=== PATIENT | female | born 1990 | race Caucasian/White ===

== ENCOUNTER 2022-04-06 10:13 | Outpatient (CLI) | payer OTHER | END 2022-04-06 10:51 | disposition home or self-care (01) | LOC: NST 10:13 | PROVIDERS: ATTEND Obstetrics & Gynecology | DX: Z34.83 Encounter for supervision of other normal pregnancy, third trimester (principal) ==

== ENCOUNTER 2022-04-10 09:47 | Outpatient (CLI) | payer OTHER | END 2022-04-10 10:27 | disposition home or self-care (01) | LOC: EDBD 09:47 → NST 09:47 | PROVIDERS: ATTEND Obstetrics & Gynecology | DX: Z34.83 Encounter for supervision of other normal pregnancy, third trimester (principal) ==

== ENCOUNTER 2022-04-15 05:54 | Inpatient (IN) | payer OTHER ==
[~2022-04-15] VITALS: Ht 162.6 cm; Wt 89.4 kg
[2022-04-15] MEDS ORDERED: PRENATAL CAPLE1 EAC1 PO (06:51)
[2022-04-15] MEDS ORDERED: PREVALITE PACKET4 GM PO (06:52)
== END 2022-04-17 14:25 | disposition home or self-care (01) | DRG 807 ==
LOC: LDR 05:54 → OB/GYN 11:34
PROVIDERS: ADMIT Obstetrics & Gynecology; ATTEND Obstetrics & Gynecology
PROC: 10E0XZZ Delivery of Products of Conception, External Approach (ICD-10-PCS; principal; 2022-04-15)
PROC: 0KQM0ZZ Repair Perineum Muscle, Open Approach (ICD-10-PCS; 2022-04-15)
PROC: 4A1HXCZ Monitoring of Products of Conception, Cardiac Rate, External Approach (ICD-10-PCS; 2022-04-15)
DX: O70.1 Second degree perineal laceration during delivery (principal); Z37.0 Single live birth; Z3A.37 37 weeks gestation of pregnancy; Z20.822 Contact with and (suspected) exposure to COVID-19